=== PATIENT | male | born 1985 | race African-American/Black ===

== ENCOUNTER 2016-12-29 16:29 | Emergency (ER) | payer SELFPAY ==
[~2016-12-29] VITALS: Wt 67.0 kg
[2016-12-29] MEDS ORDERED: HYDROmorphONE 2 MG/ML SYG IV STA (21:12)
[2016-12-29] MEDS ORDERED: SOD CHLORIDE 0.9% 1,000 ML IV STA (21:12)
--- NOTE | 2016-12-29 21:17 | ERD ---
ER Documentation Chief Complaint Date/Time DATE: 12/29/16 TIME: 21:17 Chief Complaint HAS SICKLE CELL, HAS BODY PAIN HPI 31-year-old male with long history of sickle cell disease ambulatory to the ED complaining of a 2 day history of increasing generalized achy pain which localizes to his low back and radiates down his legs. This is typical of his sickle cell pain crises. Denies chest pain, palpitations, shortness of breath or cough. No abdominal pain, nausea, vomiting, diarrhea or constipation. No hematemesis, hematochezia or melanotic stools. No dysuria, polyuria or hematuria. No relieving or exacerbating factors. No fevers or chills. ROS All systems reviewed and are negative except as per history of present illness. Medications Home Meds Reported Medications Deferasirox (Exjade) 500 Mg Tab.disper, 1500 MG PO DAILY, TAB 12/29/16 Hydroxyurea* (Hydroxyurea*) 500 Mg Capsule, 500 MG PO TID, CAP 12/29/16 Folic Acid* (Folic Acid*) 1 Mg Tablet, 1 MG PO DAILY, TAB 12/29/16 Hydromorphone Hcl* (Dilaudid*) 4 Mg Tablet, 4 MG PO NEEDED Y for PAIN, TAB 12/29/16 Allergies Allergies: Coded Allergies: morphine (Verified Allergy, Intermediate, HIVES, 12/29/16) PMhx/Soc Reviewed in chart. As per HPI History of Surgery: Yes (RT CHEST PORT PLACEMENT) Anesthesia Reaction: No Hx Neurological Disorder: No Hx Respiratory Disorders: No Hx Cardiac Disorders: No Hx Psychiatric Problems: No Hx Miscellaneous Medical Probl: Yes (SICKLE CELL) Hx Alcohol Use: No Hx Substance Use: No Hx Tobacco Use: No Smoking Status: Never smoker FmHx No family history relevant to presenting complaint. Physical Exam Vitals Vital Signs Date Time Temp Pulse Resp B/P Pulse Ox O2 Delivery O2 Flow Rate FiO2 12/30/16 00:32 98.0 81 18 120/71 99 Room Air 12/29/16 16:31 99.4 63 18 116/66 99 Physical Exam Const: Alert, moderate distress due to pain Head: Atraumatic Eyes: Normal Conjunctiva ENT: Normal External Ears, Nose and Mouth. Neck: Full range of motion. No meningismus. Resp: Clear to auscultation bilaterally. No wheezing Cardio: Regular rate and rhythm, no murmurs Abd: Soft, non tender, non distended. Normal bowel sounds. No rebound or guarding Skin: No petechiae or rashes Back: No midline or flank tenderness Ext: No cyanosis, or edema Neur: Awake and alert Psych: Normal Mood and Affect Result Diagram: 12/29/16219912/29/162199 Results 24 hrs Laboratory Tests Test 12/29/16 22:00 White Blood Count 16.010^3/ul Red Blood Count 2.5210^6/ul Hemoglobin 8.1g/dl Hematocrit 22.3% Mean Corpuscular Volume 88.5fl Mean Corpuscular Hemoglobin 32.1pg Mean Corpuscular Hemoglobin Concent 36.3g/dl Red Cell Distribution Width 22.7% Platelet Count 20483^3/UL Mean Platelet Volume 11.9fl Neutrophils % 45.9% Lymphocytes % 39.4% Monocytes % 11.9% Eosinophils % 1.3% Basophils % 0.7% Nucleated Red Blood Cells % 2.3/100WBC Neutrophils # 7.410^3/ul Lymphocytes # 6.310^3/ul Monocytes # 1.910^3/ul Eosinophils # 0.210^3/ul Basophils # 0.110^3/ul Nucleated Red Blood Cells # 0.410^3/ul Absolute Reticulocyte Count 0.628X10^6 Percent Reticulocyte Count 24.9% Sodium Level 140mmol/L Potassium Level 3.9mmol/L Chloride Level 105mmol/L Carbon Dioxide Level 27mmol/L Anion Gap 12 Blood Urea Nitrogen 7mg/dl Creatinine 0.63mg/dl Glucose Level 89mg/dl Calcium Level 9.1mg/dl Current Medications Medications (Trade) Dose Ordered Sig/Kevyn Route PRN Reason Start Time Stop Time Status Last Admin Dose Admin Sodium Chloride (NS) 1,000 ml @ 1,000 mls/hr Q1H STAT IV 12/29/16 21:12 12/29/16 22:11 DC 12/29/16 22:00 Hydromorphone HCl (Dilaudid) 2 mg ONCE STAT IV 12/29/16 21:12 12/29/16 21:17 DC 12/29/16 21:58 Diphenhydramine HCl (Benadryl) 50 mg ONCE ONCE IV 12/29/16 21:30 12/29/16 21:31 DC 12/29/16 21:58 Hydromorphone HCl (Dilaudid) 1 mg ONCE STAT IV 12/29/16 23:05 12/29/16 23:06 DC 12/29/16 23:10 Procedures/MDM DOCUMENTS REVIEWED: ED nurse, no prior records REEXAMINATION/REEVALUATION: Time: 23:05. Pain decreased but not relieved. Dilaudid 1 mg IV ordered. Time: 23:55. Doing well. Pain decreased. MEDICAL DECISION MAKIN-year-old male with long history of sickle cell disease ambulatory to the ED complaining of a 2 day history of increasing generalized achy pain which localizes to his low back and radiates down his legs. Patient presents with signs and symptoms consistent with sickle cell pain crisis. No chest pain or signs of acute chest syndrome. Abdominal exam is benign without rebound, guarding, peritonitis or signs of acute intra-abdominal process. No fever or signs of an occult infectious process. Stable for discharge precaution instructions and outpatient follow-up as counseled. Counseled patient regarding diagnostic workup, diagnosis and need for followup. Understands to return to ED if symptoms recur, worsen or any other concerns. Departure Diagnosis: Primary Impression: Acute low back pain Back pain laterality: unspecified Sciatica presence: unspecified whether sciatica present Qualified Code: M54.5 - Acute low back pain, unspecified back pain laterality, with sciatica presence unspecified Additional Impression: Sickle cell pain crisis Condition: Stable (Improved) SHAAN SIM MD Dec 29, 2016 21:17
[2016-12-29] MEDS ORDERED: FOLI-49 PO (21:25)
[2016-12-29] MEDS ORDERED: HYDR4TAB51 PO (21:25)
[2016-12-29] MEDS ORDERED: HYDR500C3 PO (21:26)
[2016-12-29] MEDS ORDERED: DEFE500T PO (21:28)
[2016-12-29] MEDS ORDERED: DIPHENHYDRAMINE 50 MG INJ IV ONE (21:30)
[2016-12-29 22:27] LABS: ABNORMAL IP MESSAGE 1; BASOPHIL # 0.1 10^3/ul (0.0-0.1); BASOPHILS % 0.7 % (0.0-2.0); EOSINOPHILS # 0.2 10^3/ul (0.0-0.5); EOSINOPHILS % 1.3 % (0.0-7.0); HEMATOCRIT 22.3 % (42.0-52.0); HEMOGLOBIN 8.1 g/dl (14.0-18.0); LYMPHOCYTES # 6.3 10^3/ul (0.8-2.9); LYMPHOCYTES % 39.4 % (15.0-51.0); MEAN CORPUSCULAR HEMOGLOBIN 32.1 pg (29.0-33.0); MEAN CORPUSCULAR HGB CONC 36.3 g/dl (32.0-37.0); MEAN CORPUSCULAR VOLUME 88.5 fl (82.0-101.0); MEAN PLATELET VOLUME 11.9 fl (7.4-10.4); MONOCYTE # 1.9 10^3/ul (0.3-0.9); MONOCYTES % 11.9 % (0.0-11.0); NEUTROPHIL # 7.4 10^3/ul (1.6-7.5); NEUTROPHILS % 45.9 % (39.0-77.0); NUCLEATED RED BLOOD CELLS # 0.4 10^3/ul (0.0-0.0); NUCLEATED RED BLOOD CELLS% 2.3 /100WBC (0.0-0.0); PLATELET COUNT 318 10^3/UL (140-415); POSITIVE DIFF @See below; RED BLOOD COUNT 2.52 10^6/ul (4.70-6.10); RED CELL DISTRIBUTION WIDTH 22.7 % (11.5-14.5); RETICULOCYTE COUNT % 24.9 % (0.5-1.5)
[2016-12-29 22:57] LABS: CALCIUM 9.1 mg/dl (8.4-10.2); CREATININE 0.63 mg/dl (0.61-1.24); POTASSIUM 3.9 mmol/L (3.5-5.1)
[2016-12-29] MEDS ORDERED: HYDROmorphONE 1 MG/ML SYG IV STA (23:05)
[2016-12-30 00:32] VITALS: BP 120/71; PULSE 81; RESP 18; TEMP 98
== END 2016-12-30 00:34 | disposition home or self-care (01) ==
LOC: E/R 16:29
DX: M54.5 Low back pain (principal); D57.219 Sickle-cell/Hb-C disease with crisis, unspecified
CPT/HCPCS: 36415; 80048; 85025; 85045; 96374; 96375; 99284; J1170; J1200; J7030

== ENCOUNTER 2017-01-04 09:03 | Emergency (ER) | payer OTHER ==
[~2017-01-04] VITALS: Wt 68.0 kg
[~2017-01-04 09:03] MED LIST: DEFE500T PO; FOLI-49 PO; HYDR4TAB51 PO; HYDR500C3 PO
[2017-01-04] MEDS ORDERED: HYDROmorphONE 1 MG/ML SYG IV STA ×2 (11:32→13:17)
--- NOTE | 2017-01-04 11:44 | ERD ---
ER Documentation Chief Complaint Date/Time DATE: 01/04/17 TIME: 11:41 Chief Complaint GEN PAIN FROM SICKLE CELL WAS ADMITTED AT [facility] THIS AM. HPI Patient is a 31-year-old male with sickle cell disease who presents with generalized body pain that is consistent with his pain crisis since 1 AM this morning. The patient went to [facility] this morning and was admitted to the hospital for sickle pain crisis. The patient denies fever, cough, weakness , dizziness. He states that he takes 4 mg Dilaudid as an outpatient but this has not been helping him. He is visiting from [place], and had a visit to this hospital 6 days ago for similar symptoms. He states that he signed out of [facility]ICE because he did not believe he was getting enough pain control and he had not yet been seen by his admitting doctor. He states that his aunt wanted him to return to [facility] because he has been seen here previously. ROS All systems reviewed and are negative except as per history of present illness. Medications Home Meds Reported Medications Deferasirox (Exjade) 500 Mg Tab.disper, 1500 MG PO DAILY, TAB 12/29/16 Hydroxyurea* (Hydroxyurea*) 500 Mg Capsule, 500 MG PO TID, CAP 12/29/16 Folic Acid* (Folic Acid*) 1 Mg Tablet, 1 MG PO DAILY, TAB 12/29/16 Hydromorphone Hcl* (Dilaudid*) 4 Mg Tablet, 4 MG PO NEEDED Y for PAIN, TAB 12/29/16 Allergies Allergies: Coded Allergies: morphine (Verified Allergy, Intermediate, HIVES, 12/29/16) PMhx/Soc Past medical history: Sickle cell disease Past surgical history: Port-A-Cath placement Social history: Denies tobacco or alcohol History of Surgery: Yes (RT CHEST PORT PLACEMENT) Anesthesia Reaction: No Hx Neurological Disorder: No Hx Respiratory Disorders: No Hx Cardiac Disorders: No Hx Psychiatric Problems: No Hx Miscellaneous Medical Probl: Yes (SICKLE CELL) Hx Alcohol Use: No Hx Substance Use: No Hx Tobacco Use: No Smoking Status: Unknown if ever smoked FmHx Family History: No coronary disease, No diabetes Physical Exam Vitals Vital Signs Date Time Temp Pulse Resp B/P Pulse Ox O2 Delivery O2 Flow Rate FiO2 01/04/17 09:07 97.3 65 20 164/94 99 Physical Exam Const: Alert, appears mildly uncomfortable Head: Atraumatic Eyes: Moderate conjunctival icterus, mild pallor ENT: Normal External Ears, Nose and Mouth. Mucous membranes moist Neck: Full range of motion..~ No meningismus. Resp: Clear to auscultation bilaterally, No wheezes, no rales Cardio: Regular rate and rhythm, no murmurs Abd: Soft, non tender, non distended. Skin: No petechiae or rashes Back: No midline or flank tenderness Ext: No cyanosis, or edema Neur: Awake and alert, Cranial nerves II through XII intact bilaterally, strength and sensation full in 4 extremities Psych: Normal Mood and Affect Result Diagram: 01/04/17 1308 01/04/17 1308 Results 24 hrs Laboratory Tests Test 01/04/17 13:08 White Blood Count 17.510^3/ul Red Blood Count 2.5710^6/ul Hemoglobin 8.1g/dl Hematocrit 22.8% Mean Corpuscular Volume 88.7fl Mean Corpuscular Hemoglobin 31.5pg Mean Corpuscular Hemoglobin Concent 35.5g/dl Red Cell Distribution Width 21.9% Platelet Count 78800^3/UL Mean Platelet Volume 11.9fl Neutrophils % 62.9% Lymphocytes % 23.6% Monocytes % 9.9% Eosinophils % 0.2% Basophils % 0.4% Nucleated Red Blood Cells % 2.7/100WBC Neutrophils # 11.010^3/ul Lymphocytes # 4.110^3/ul Monocytes # 1.710^3/ul Eosinophils # 0.010^3/ul Basophils # 0.110^3/ul Nucleated Red Blood Cells # 0.510^3/ul Sickle Cells 2+ Absolute Reticulocyte Count 0.605X10^6 Percent Reticulocyte Count 23.5% Sodium Level 143mmol/L Potassium Level 4.7mmol/L Chloride Level 106mmol/L Carbon Dioxide Level 28mmol/L Anion Gap 14 Blood Urea Nitrogen 9mg/dl Creatinine 0.66mg/dl Glucose Level 98mg/dl Calcium Level 9.0mg/dl Total Bilirubin 4.3mg/dl Direct Bilirubin 0.00mg/dl Indirect Bilirubin 4.3mg/dl Aspartate Amino Transf (AST/SGOT) 110IU/L Alanine Aminotransferase (ALT/SGPT) 81IU/L Alkaline Phosphatase 159IU/L Troponin I < 0.012ng/ml Total Protein 8.7g/dl Albumin 4.8g/dl Globulin 3.90g/dl Albumin/Globulin Ratio 1.23 Current Medications Medications (Trade) Dose Ordered Sig/Kevyn Route PRN Reason Start Time Stop Time Status Last Admin Dose Admin Sodium Chloride (NS) 1,000 ml @ 1,000 mls/hr Q1H ONCE IV 01/04/17 12:00 01/04/17 12:59 DC 01/04/17 12:15 Hydromorphone HCl (Dilaudid) 1 mg ONCE STAT IV 01/04/17 11:32 01/04/17 11:33 DC 01/04/17 12:15 Hydromorphone HCl (Dilaudid) 1 mg ONCE STAT IV 01/04/17 13:17 01/04/17 13:18 DC 01/04/17 13:59 Procedures/MDM EKG read by me: Time 1243, rate 60 Rhythm: Normal sinus [place]: Normal Intervals: Normal ST-T waves: no ischemic changes Ectopy: No Q-waves: No Impression: No evidence of ischemia or arrhythmia MDM: Patient is a 31-year-old male with sickle cell disease who presents to the ER with total body pain since this morning. The patient was seen at [facility] where he complained of total body pain but specifically of chest pain that has been constant since 1 AM. He had a nonischemic EKG and a negative troponin, but was admitted for further pain control and potential cardiac workup. The patient signed out and came to [facility]. I was initially unable to obtain the notes from [facility], so a workup was initiated. The patient has hemoglobin of 8.1, and states his baseline is between 8 and 9. He does have signs of elevated bilirubin and reticulocytosis. His chest x-ray shows mild cardiomegaly but is otherwise unremarkable. He has no hypoxemia or tachypnea, no fever. His EKG is nonischemic and troponin is negative in the setting of greater than 12 hours of constant symptoms. The patient's pain management doctor in [place], but he was unreachable. The patient provided a phone number for his expansion joint finisher that was not an active number. The patient did have several behaviors that were concerning for drug- seeking behavior. It was noted that he told [facility] that he had been admitted to [facility] yesterday, which is inaccurate. He signed out AMA apparently due to unhappiness with the quantity of pain medication he was provided. He brought his home medication to the ER, 4 mg of Dilaudid, and pill count shows that he is using excessive quantities of medication. He did not exhibit significant outward signs of pain and had normal vital signs. Although he does have clear signs of sickle cell disease and may be having a pain crisis, I have no objective information to confirm this. Patient was given IV fluids and 2 doses of IV Dilaudid while in the ER, and I advised him to continue his home pain medication and follow-up with his pain management doctor. He was advised on return precautions. Do not believe that his chest pain is concerning for acute coronary syndrome or requires further inpatient evaluation. I do not believe that his symptoms are concerning for pulmonary embolism. There are no signs of acute chest syndrome.I do not believe the patient requires a blood transfusion. Patient was well-appearing at discharge per Departure Diagnosis: Primary Impression: Sickle cell pain crisis Condition: ERINN Gunn MD Jan 04, 2017 11:44
[2017-01-04] MEDS ORDERED: SOD CHLORIDE 0.9% 1,000 ML IV ONE (12:00)
--- NOTE | 2017-01-04 13:07 | RADRPT ---
PROCEDURE: XR Chest. CLINICAL INDICATION: Shortness of breath TECHNIQUE: Single portable view of the chest was obtained COMPARISON: No priors for comparison. FINDINGS: The trachea is midline. The cardiac silhouette is enlarged and pulmonary vascularity are within norm al limits. The lungs are clear. The costophrenic angles are sharp. There is a right sided MediPort w ith distal tip in the SVC. IMPRESSION: 1. Cardiomegaly. No evidence of acute cardiopulmonary disease. 2. Right sided MediPort in satisfactory position. RPTAT: AAPP Physician Maribel Date Time Electronically viewed and signed by Physician Maribel on 01/04/2017 13:07 JL/
[2017-01-04 13:39] LABS: ABNORMAL IP MESSAGE 1; BASOPHIL # 0.1 10^3/ul (0.0-0.1); BASOPHILS % 0.4 % (0.0-2.0); EOSINOPHILS % 0.2 % (0.0-7.0); HEMATOCRIT 22.8 % (42.0-52.0); HEMOGLOBIN 8.1 g/dl (14.0-18.0); LYMPHOCYTES # 4.1 10^3/ul (0.8-2.9); LYMPHOCYTES % 23.6 % (15.0-51.0); MEAN CORPUSCULAR HEMOGLOBIN 31.5 pg (29.0-33.0); MEAN CORPUSCULAR HGB CONC 35.5 g/dl (32.0-37.0); MEAN CORPUSCULAR VOLUME 88.7 fl (82.0-101.0); MEAN PLATELET VOLUME 11.9 fl (7.4-10.4); MONOCYTE # 1.7 10^3/ul (0.3-0.9); MONOCYTES % 9.9 % (0.0-11.0); NEUTROPHILS % 62.9 % (39.0-77.0); NUCLEATED RED BLOOD CELLS # 0.5 10^3/ul (0.0-0.0); NUCLEATED RED BLOOD CELLS% 2.7 /100WBC (0.0-0.0); PLATELET COUNT 214 10^3/UL (140-415); POSITIVE DIFF @See below; RED BLOOD COUNT 2.57 10^6/ul (4.70-6.10); RED CELL DISTRIBUTION WIDTH 21.9 % (11.5-14.5); RETICULOCYTE COUNT % 23.5 % (0.5-1.5); WHITE BLOOD COUNT 17.5 10^3/ul (4.8-10.8)
[2017-01-04 13:56] LABS: ALBUMIN 4.8 g/dl (3.3-4.9); ALBUMIN/GLOBULIN RATIO 1.23; BILIRUBIN,INDIRECT 4.3 mg/dl (0-1.1); BILIRUBIN,TOTAL 4.3 mg/dl (0.2-1.3); CREATININE 0.66 mg/dl (0.61-1.24); POTASSIUM 4.7 mmol/L (3.5-5.1); TOTAL PROTEIN 8.7 g/dl (6.1-8.1)
[2017-01-04 14:40] LABS: SICKLE CELL 2+ (0-0)
== END 2017-01-04 18:08 | disposition home or self-care (01) ==
LOC: E/R 09:03
DX: D57.219 Sickle-cell/Hb-C disease with crisis, unspecified (principal); R40.2142 Coma scale, eyes open, spontaneous, at arrival to emergency department; R40.2252 Coma scale, best verbal response, oriented, at arrival to emergency department; R40.2362 Coma scale, best motor response, obeys commands, at arrival to emergency department; R06.02 Shortness of breath
CPT/HCPCS: 71010; 80053; 84484; 85025; 85045; 86850; 86900; 86901; 93005; 96374; 96375; 99285; J1170; J7030

== ENCOUNTER 2017-01-28 00:31 | Emergency (ER) | payer SELFPAY ==
[~2017-01-28] VITALS: Ht 162.6 cm; Wt 68.5 kg
[2017-01-28 01:03] VITALS: Ht 162.6 cm; Wt 68.5 kg
[2017-01-28] MEDS ORDERED: HYDROmorphONE 1 MG/ML SYG IV STA ×3 (02:47→05:51)
[2017-01-28] MEDS ORDERED: ONDANSETRON 4 MG INJ IV STA ×3 (02:47→05:51)
--- NOTE | 2017-01-28 02:51 | ERD ---
ER Documentation Chief Complaint Chief Complaint king rib pain radiating to back and legs ; hx of sickle cell HPI This a 31-year-old male with history of sickle cell disease who is here for a crisis. The patient lives in [place] Dilaudid capsules for his pain relief. He says his pain is flaring up because of the weather here. He is complaining of pain in his joints and his located in the bilateral hips and bilateral knees and some in his ribs. He says this is the typical locations where he gets a sickle cell pain. He has had no fever cough shortness of breath chest pain headache vomiting diarrhea dysuria. Pain is sharp worse with movement ROS All systems reviewed and are negative except as per history of present illness. Medications Home Meds Active Scripts Hydrocodone/Acetaminophen ([place] 10-325 Tablet) 1 Each Tablet, 1 TAB PO Q6H Y for PAIN, #20 TAB Prov:GURINDER GUPTA DO 01/28/17 Reported Medications Deferasirox (Exjade) 500 Mg Tab.disper, 1500 MG PO DAILY, TAB 12/29/16 Hydroxyurea* (Hydroxyurea*) 500 Mg Capsule, 500 MG PO TID, CAP 12/29/16 Folic Acid* (Folic Acid*) 1 Mg Tablet, 1 MG PO DAILY, TAB 12/29/16 Hydromorphone Hcl* (Dilaudid*) 4 Mg Tablet, 4 MG PO NEEDED Y for PAIN, TAB 12/29/16 Allergies Allergies: Coded Allergies: morphine (Verified Allergy, Intermediate, HIVES, 12/29/16) PMhx/Soc History of Surgery: Yes (RT CHEST PORT PLACEMENT) Anesthesia Reaction: No Hx Neurological Disorder: No Hx Respiratory Disorders: No Hx Cardiac Disorders: No Hx Psychiatric Problems: No Hx Miscellaneous Medical Probl: Yes (SICKLE CELL) Hx Alcohol Use: No Hx Substance Use: No Hx Tobacco Use: No FmHx Family History: No coronary disease Physical Exam Vitals Vital Signs Date Time Temp Pulse Resp B/P Pulse Ox O2 Delivery O2 Flow Rate FiO2 01/28/17 04:23 73 18 136/81 98 Room Air 01/28/17 01:03 98.3 69 20 127/71 99 Physical Exam Const: Well-developed, well-nourished Head: Atraumatic, normocephalic Eyes: Normal Conjunctiva, PERRLA, EOMI, normal sclera, no nystagmus ENT: Normal External Ears, Nose and Mouth, moist mucus membranes. Neck: Full range of motion. No meningismus, no lymphadenopathy. Resp: Clear to auscultation bilaterally, no wheezing, rhonchi, rales Cardio: Regular rate and rhythm, no murmurs, S1 S2 present Abd: Soft, non tender x 4, non distended. Normal bowel sounds, no guarding or rebound, no pulsitile abdominal masses or bruits Skin: No petechiae or rashes, no ecchymosis , no maculopapular rash Back: No midline or flank tenderness Ext: No cyanosis, or edema, FROM x 4, normal inspection, neurovascularly intact x 4 Neur: Awake and alert, STR 5/5 x 4, sensation intact x 4, no focal findings, cerebellum intact Psych: Normal Mood and Affect Result Diagram: 01/28/17 0300 01/28/17 0300 Results 24 hrs Laboratory Tests Test 01/28/17 03:00 White Blood Count 14.810^3/ul Red Blood Count 2.5910^6/ul Hemoglobin 8.1g/dl Hematocrit 23.3% Mean Corpuscular Volume 90.0fl Mean Corpuscular Hemoglobin 31.3pg Mean Corpuscular Hemoglobin Concent 34.8g/dl Red Cell Distribution Width 19.4% Platelet Count 88812^3/UL Mean Platelet Volume 10.6fl Neutrophils % 58.0% Lymphocytes % 29.0% Monocytes % 10.4% Eosinophils % 1.2% Basophils % 0.9% Nucleated Red Blood Cells % 1.4/100WBC Neutrophils # 8.610^3/ul Lymphocytes # 4.310^3/ul Monocytes # 1.510^3/ul Eosinophils # 0.210^3/ul Basophils # 0.110^3/ul Nucleated Red Blood Cells # 0.210^3/ul Absolute Reticulocyte Count 0.338X10^6 Percent Reticulocyte Count 13.1% Sodium Level 146mmol/L Potassium Level 4.1mmol/L Chloride Level 106mmol/L Carbon Dioxide Level 27mmol/L Anion Gap 17 Blood Urea Nitrogen 12mg/dl Creatinine 0.66mg/dl Glucose Level 100mg/dl Calcium Level 9.0mg/dl Total Bilirubin 2.3mg/dl Direct Bilirubin 0.00mg/dl Indirect Bilirubin 2.3mg/dl Aspartate Amino Transf (AST/SGOT) 118IU/L Alanine Aminotransferase (ALT/SGPT) 133IU/L Alkaline Phosphatase 184IU/L Total Protein 7.9g/dl Albumin 4.4g/dl Globulin 3.50g/dl Albumin/Globulin Ratio 1.25 Current Medications Medications (Trade) Dose Ordered Sig/Kevyn Route PRN Reason Start Time Stop Time Status Last Admin Dose Admin Sodium Chloride (NS) 1,000 ml @ 1,000 mls/hr Q1H ONCE IV 01/28/17 02:57 01/28/17 03:56 DC 01/28/17 03:09 Hydromorphone HCl (Dilaudid) 1 mg ONCE STAT IV 01/28/17 02:47 01/28/17 02:49 DC 01/28/17 03:09 Ondansetron HCl (Zofran Inj) 4 mg ONCE STAT IV 01/28/17 02:47 01/28/17 02:49 DC 01/28/17 03:09 Hydromorphone HCl (Dilaudid) 1 mg ONCE STAT IV 01/28/17 04:15 01/28/17 04:16 DC 01/28/17 04:22 Ondansetron HCl (Zofran Inj) 4 mg ONCE STAT IV 01/28/17 04:15 01/28/17 04:16 DC 01/28/17 04:22 Diphenhydramine HCl (Benadryl) 25 mg ONCE ONCE IV 01/28/17 04:30 01/28/17 04:31 DC 01/28/17 04:22 Hydromorphone HCl (Dilaudid) 1 mg ONCE STAT IV 01/28/17 05:51 01/28/17 05:54 DC Ondansetron HCl (Zofran Inj) 4 mg ONCE STAT IV 01/28/17 05:51 01/28/17 05:54 DC Diphenhydramine HCl (Benadryl) 25 mg ONCE ONCE IV 01/28/17 06:00 01/28/17 06:01 DC Procedures/MDM Patient received IV fluids and pain medications. The patient states his pain is much better. Prescription for [place] for pain. Does not exhibit any signs or symptoms of headache chest pain or shortness of breath that would be concerning Departure Diagnosis: Primary Impression: Sickle cell crisis Condition: Stable LEKKOS,APOSTOLOS A. DO Jan 28, 2017 02:51
[2017-01-28] MEDS ORDERED: SOD CHLORIDE 0.9% 1,000 ML IV ONE (02:57)
[2017-01-28] MEDS ORDERED: DIPHENHYDRAMINE 50 MG INJ IV ONE ×2 (04:30→06:00)
[2017-01-28] MEDS ORDERED: HYDR-902 PO (06:10)
[2017-01-28 06:20] VITALS: BP 129/75; PULSE 69; RESP 18; TEMP 98.3
== END 2017-01-28 06:20 | disposition home or self-care (01) ==
LOC: E/R 00:31
DX: D57.00 Hb-SS disease with crisis, unspecified (principal)
CPT/HCPCS: 36415; 80053; 85025; 85045; 96374; 96375; 96376; 99284; J1170; J1200; J2405; J7030